=== PATIENT | female | born 1955 | race Hispanic/Latino ===

== ENCOUNTER 2021-05-15 07:58 | Outpatient (CLI) | payer MEDICARE | END 2021-05-15 07:59 | disposition home or self-care (01) | LOC: CSHMAMMO 07:58 | PROVIDERS: ATTEND Family Medicine | DX: Z12.31 Encounter for screening mammogram for malignant neoplasm of breast (principal) | CPT/HCPCS: 77063; 77067 ==

== ENCOUNTER 2021-05-16 10:10 | Outpatient (CLI) | payer MEDICARE | END 2021-05-16 10:11 | disposition home or self-care (01) | LOC: CSHMAMMO 10:10 | PROVIDERS: ATTEND Family Medicine | DX: Z13.820 Encounter for screening for osteoporosis (principal); Z78.0 Asymptomatic menopausal state; M81.0 Age-related osteoporosis without current pathological fracture; M85.851 Other specified disorders of bone density and structure, right thigh | CPT/HCPCS: 77080 ==

== ENCOUNTER 2023-08-24 09:03 | Outpatient (CLI) | payer MEDICARE | END 2023-08-24 09:04 | disposition home or self-care (01) | LOC: CSHMAMMO 09:03 | PROVIDERS: ATTEND Family Medicine | DX: Z12.31 Encounter for screening mammogram for malignant neoplasm of breast (principal) | CPT/HCPCS: 77063; 77067 ==

== ENCOUNTER 2024-05-11 10:55 | Outpatient (CLI) | payer MEDICARE | END 2024-05-11 10:56 | disposition home or self-care (01) | LOC: CSHRAD 10:55 | PROVIDERS: ATTEND Family Medicine | DX: M54.50 Low back pain, unspecified (principal); M25.511 Pain in right shoulder; M54.6 Pain in thoracic spine; M47.816 Spondylosis without myelopathy or radiculopathy, lumbar region; M19.011 Primary osteoarthritis, right shoulder | CPT/HCPCS: 72100 ==